=== PATIENT | female | born 1950 | race Caucasian/White ===

== ENCOUNTER → 2017-09-22 | Emergency (ER) | payer MEDICARE, MEDICAID ==
[~2017-09-22] MED LIST: Potassium Chloride 20 MEQ TAB ONE
[2017-09-22 10:55] LABS: Hemoglobin 12.5 g/dL (12.0-16.0); Mean Corpuscular HGB CONC 34.5 g/dL (32.0-36.0); Mean Corpuscular Hemoglobin 32.8 pg (27.0-31.0); Mean Corpuscular Volume 94.8 fl (81.0-99.0); RBC Distribution Width 11.8 % (11.5-14.5); Red Blood Cell (RBC) Count 3.82 mill/uL (4.20-5.40); White Blood Cell (WBC) Count 16.2 thou/uL (4.8-10.8)
[2017-09-22 11:05] LABS: ALT (SGPT) 136 U/L (8-55); AST (SGOT) 65 U/L (5-34); Albumin 3.1 g/dL (3.4-4.8); Alkaline Phosphatase 260 U/L (40-150); Anion Gap 15 mmol/L (10-20); BUN (Urea Nitrogen) 23 mg/dL (9.8-20.1); Bilirubin, Total 2.1 mg/dL (0.2-1.2); Calc. Creatinine Clearance 0 mL/min (70-130); Calcium 8.8 mg/dL (7.8-10.44); Carbon Dioxide 26 mmol/L (23-31); Chloride 88 mmol/L (98-107); Estimated GFR-MDRD 70; Globulin 3.2 g/dL (2.4-3.5); Glucose 136 mg/dL (80-115); Protein, Total 6.3 g/dL (6.0-8.3); Sodium 126 mmol/L (136-145)
[2017-09-22 11:18] LABS: Mean Platelet Volume 11.7 fL (7.4-10.4); Platelet Count 103 thou/uL (130-400)
[2017-09-22 11:19] LABS: Band 17 % (5-11); Eosinophils 3 % (0-10); Lymphocytes 5 % (21-51); MDiff Complete? YES; Monocytes 3 % (0-10); Neutrophil 72 % (42-75); PLT Morphology Comment Appears Decreased
[2017-09-22 11:22] LABS: Potassium 2.7 mmol/L (3.5-5.1)
--- NOTE | 2017-09-22 11:33 | CT ---
CT HEAD WITHOUT IV CONTRAST: Date: 09-22-17 History: Dizziness, altered mental status. Comparison: None available. FINDINGS: There are now density areas seen within the periventricular white matter, likely attributable to chr onic small vessel ischemic changes. There is no acute cortical infarction seen. There is no evidence of a hemorrhage, mass effect, or midline shift. The ventricular system is normal in size, shape, an d position. Visualized paranasal sinuses and mastoid air cells are clear. Calvarial structures are i ntact. IMPRESSION: 1. No acute intracranial abnormalities demonstrated. 2. Chronic small vessel ischemic changes. POS: [facility]
--- NOTE | 2017-09-22 11:34 | RAD ---
CHEST TWO VIEWS: Date: 09-22-17 Comparison: None. History: Dizziness, urinary tract infection. FINDINGS: There is no pneumothorax, pleural fluid, focal consolidation, or alveolar edema. Heart and mediastin al contours appear within normal limits. Osseous structures grossly unremarkable. IMPRESSION: No acute findings. POS: [facility]
[2017-09-22 16:36] LABS: Glucose, Urine (Dipstick) Negative (Negative); Leukocyte Negative (Negative); Nitrite Negative (Negative); Protein, Urine (Dipstick) Negative (Neg-Trace)
[2017-09-22 16:37] LABS: Amphetamine Not Detected (NotDetected); Bacteria/HPF Rare-Few HPF (None Seen); Barbiturates Screen Not Detected (NotDetected); Benzodiazepine Screen Not Detected (NotDetected); Bilirubin Negative (Negative); Blood, Urine Small (Negative); Clarity Clear (Clear); Cocaine Metabolite Screen Not Detected (NotDetected); Medtox Control Line Valid? VALID (VALID); Methadone Not Detected (NotDetected); Methamphetamine Not Detected (NotDetected); Opiate Screen Detected (NotDetected); Oxycodone Screen Not Detected (NotDetected); Phencyclidine (PCP) Not Detected (NotDetected); THC/Cannabinoid Screen Not Detected (NotDetected); Tricyclic Screen Not Detected (NotDetected)
== END ==
LOC: NAV ERS 09:49
DX: E87.1 Hypo-osmolality and hyponatremia (principal); E87.6 Hypokalemia; E86.9 Volume depletion, unspecified; T40.2X5A Adverse effect of other opioids, initial encounter; M19.90 Unspecified osteoarthritis, unspecified site; F32.9 Major depressive disorder, single episode, unspecified; Z87.891 Personal history of nicotine dependence; Z79.899 Other long term (current) drug therapy
CPT/HCPCS: 36416; 70450; 71020; 80053; 80306; 81003; 81015; 83605; 85025; 96360; 96361; 36415-59

== ENCOUNTER 2019-06-30 11:41 | Emergency (ER) | payer MEDICARE, OTHER ==
[2019-06-30 12:32] LABS: #Basophils 0.1 thou/uL (0.0-0.2); #Eosinphils 0.2 thou/uL (0.0-0.7); #Lymphocytes 2.3 thou/uL (1.20-3.40); #Monocytes 0.5 thou/uL (0.11-0.59); #Neutrophils 4.3 thou/uL (1.40-6.50); %Basophils 1.1 % (0.0-1.0); %Eosinophils 3.3 % (0.0-10.0); %Lymphocytes 30.8 % (21.0-51.0); %Monocytes 6.8 % (0.0-10.0); %Neutrophils 58.1 % (42.0-75.0); Hemoglobin 13.8 g/dL (12.0-16.0); Mean Corpuscular HGB CONC 33.4 g/dL (32.0-36.0); Mean Corpuscular Hemoglobin 30.9 pg (27.0-31.0); Mean Corpuscular Volume 92.6 fL (78.0-98.0); Mean Platelet Volume 8.5 fL (7.4-10.4); Platelet Count 200 thou/uL (130-400); Red Blood Cell (RBC) Count 4.46 mill/uL (4.20-5.40); White Blood Cell (WBC) Count 7.4 thou/uL (4.8-10.8)
[2019-06-30 12:47] LABS: ALT (SGPT) 46 U/L (8-55); AST (SGOT) 28 U/L (5-34); Albumin 4.6 g/dL (3.4-4.8); Alkaline Phosphatase 86 U/L (40-150); Anion Gap 15 mmol/L (10-20); BUN (Urea Nitrogen) 22 mg/dL (9.8-20.1); Bilirubin, Total 0.8 mg/dL (0.2-1.2); Calc. Creatinine Clearance 0 mL/min (70-130); Calcium 9.7 mg/dL (7.8-10.44); Carbon Dioxide 27 mmol/L (23-31); Chloride 101 mmol/L (98-107); Estimated GFR-MDRD 77; Globulin 2.9 g/dL (2.4-3.5); Glucose 103 mg/dL (80-115); Lipase 14 U/L (8-78); Protein, Total 7.5 g/dL (6.0-8.3); Sodium 139 mmol/L (136-145)
[2019-06-30 12:49] LABS: Bilirubin Negative (Negative); Blood, Urine Large (Negative); Clarity Clear (Clear); Glucose, Urine (Dipstick) Negative (Negative); Leukocyte Negative (Negative); Nitrite Negative (Negative); Protein, Urine (Dipstick) Negative (Neg-Trace); Urobilinogen 0.2 mg/dL (Less than 2)
[2019-06-30] MEDS ORDERED: Ondansetron ODT 4 MG TAB ONE (12:50)
[2019-06-30] MEDS ORDERED: hydrALAZINE 20 MG/ML VIAL ONE (13:02)
[2019-06-30] MEDS ORDERED: Morphine 4 MG/ML VIAL ONE ×2 (13:02→14:53)
[2019-06-30 13:07] LABS: Bacteria/HPF None Seen HPF (None Seen); RBC/HPF Greater than 50 HPF (0-3); Squamous Epithelial None Seen HPF (0-3); WBC/HPF None Seen HPF (0-3)
[2019-06-30] MEDS ORDERED: Ondansetron PF 4 MG/2 ML Vial ONE (13:42)
--- NOTE | 2019-06-30 13:52 | CT ---
CT Stone Protocol History: Abdominal pain. Comparison: None. Findings: Lung bases are clear. No pericardial effusion. Small fat-containing umbilical hernia. Prior cholecystectomy. [place] effect extrahepatic biliary system. Mild right hydroureteronephrosis to the level of the ureterovesicular junction due to a partially obs tructing 2 x 3 mm calculus. No other calculus within either renal collecting system nor ureter. The urinary bladder is without ca lculus. Mild diverticular disease sigmoid colon without active current inflammation. The appendix is visualiz ed and is normal. 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 Moderate degenerative changes o f both hips. Aortoiliac contour is nonaneurysmal. Impression: Partially obstructive right distal ureteral calculus at the ureterovesicular junction fredi suring 2 x 3 mm.
[2019-06-30] MEDS ORDERED: Ketorolac Tromethamine 30 MG/ML VIAL ONE (14:03)
[2019-06-30] MEDS ORDERED: Sodium Chloride 0.9% 1,000 ML ONE (14:03)
[2019-06-30] MEDS ORDERED: Promethazine HCl 25 MG/ML VIAL ONE (14:53)
[2019-06-30] MEDS ORDERED: Sodium Chloride 0.9% 500 ML ONE (14:53)
== END 2019-06-30 17:02 | disposition home or self-care (01) ==
LOC: NAV ERS 11:41
DX: N13.2 Hydronephrosis with renal and ureteral calculous obstruction (principal); M19.90 Unspecified osteoarthritis, unspecified site; F32.9 Major depressive disorder, single episode, unspecified; Z87.891 Personal history of nicotine dependence; Z79.891 Long term (current) use of opiate analgesic; Z79.899 Other long term (current) drug therapy
CPT/HCPCS: 36415; 74176; 80053; 81003; 81015; 83690; 85025; 96361; 96365; 96375; J0360; J1885; J2270; J2405; J2550; J7050; Q0162

== ENCOUNTER 2021-01-31 10:07 | Outpatient (CLI) | payer MEDICARE, MEDICAID | END 2021-01-31 10:08 | disposition home or self-care (01) | LOC: NAV RAD 10:07 | PROVIDERS: ATTEND Internal Medicine | DX: M70.52 Other bursitis of knee, left knee (principal); M17.0 Bilateral primary osteoarthritis of knee ==

== ENCOUNTER 2021-11-25 12:49 | Emergency (ER) | payer MEDICARE, MEDICAID, OTHER | END 2021-11-25 13:26 | disposition home or self-care (01) | LOC: NAV ERS 12:49 | DX: H11.32 Conjunctival hemorrhage, left eye (principal); M19.90 Unspecified osteoarthritis, unspecified site; Z87.891 Personal history of nicotine dependence; Z79.899 Other long term (current) drug therapy | CPT/HCPCS: 99282 ==

== ENCOUNTER 2021-11-30 19:18 | Emergency (ER) | payer MEDICARE, MEDICAID, OTHER ==
[2021-11-30] MEDS ORDERED: Lidocaine 1% (PF) 30 ML VIAL ONE (19:43)
[2021-11-30] MEDS ORDERED: Boostrix 0.5 ML (Tdap) VIAL ONE (20:01)
[2021-11-30] MEDS ORDERED: Amoxicillin/Potassium Clav 875 MG TAB ONE (20:03)
== END 2021-11-30 20:25 | disposition home or self-care (01) ==
LOC: NAV ERS 19:18
DX: S91.112A Laceration without foreign body of left great toe without damage to nail, initial encounter (principal); M19.90 Unspecified osteoarthritis, unspecified site; Z87.891 Personal history of nicotine dependence; Z79.899 Other long term (current) drug therapy
CPT/HCPCS: 12002; 90471; 90715; J2001

== ENCOUNTER 2023-10-26 12:22 | Emergency (ER) | payer OTHER, MEDICAID ==
[2023-10-26] MEDS ORDERED: Amoxicillin/Potassium Clav 875 MG TAB ONE (13:01)
== END 2023-10-26 13:05 | disposition home or self-care (01) ==
LOC: NAV ERS 12:22
DX: K04.7 Periapical abscess without sinus (principal); Z87.891 Personal history of nicotine dependence
CPT/HCPCS: 99282

== ENCOUNTER 2023-12-14 09:54 | Emergency (ER) | payer OTHER, MEDICAID ==
[2023-12-14] MEDS ORDERED: Bacitracin 1 PK ONE (10:31)
== END 2023-12-14 10:45 | disposition home or self-care (01) ==
LOC: NAV ERS 09:54
DX: T24.232A Burn of second degree of left lower leg, initial encounter (principal); T31.0 Burns involving less than 10% of body surface; X11.0XXA Contact with hot water in bath or tub, initial encounter
CPT/HCPCS: 16020; 99283

== ENCOUNTER 2024-02-07 16:24 | Emergency (ER) | payer OTHER, MEDICAID ==
[2024-02-07 17:04] LABS: #Basophils 0.1 thou/uL (0.0-0.2); #Eosinphils 0.3 thou/uL (0.0-0.7); #Monocytes 0.4 thou/uL (0.11-0.59); #Neutrophils 3.3 thou/uL (1.40-6.50); %Basophils 1.9 % (0.0-1.0); %Eosinophils 4.4 % (0.0-10.0); %Neutrophils 54.7 % (42.0-75.0); Hematocrit 42.4 % (36.0-47.0); Hemoglobin 14.2 g/dL (12.0-16.0); Mean Corpuscular HGB CONC 33.5 g/dL (32.0-36.0); Mean Corpuscular Hemoglobin 31.4 pg (27.0-31.0); Mean Corpuscular Volume 93.6 fl (78.0-98.0); Mean Platelet Volume 8.8 fL (7.4-10.4); Platelet Count 204 10x3/uL (130-400); RBC Distribution Width 11.6 % (11.5-14.5); Red Blood Cell (RBC) Count 4.53 mill/uL (4.20-5.40); White Blood Cell (WBC) Count 6.1 10x3/uL (4.8-10.8)
[2024-02-07 17:19] LABS: ALT (SGPT) 118 U/L (8-55); AST (SGOT) 88 U/L (5-34); Albumin 4.2 g/dL (3.4-4.8); Alkaline Phosphatase 125 U/L (40-110); Anion Gap 12 mmol/L (10-20); BUN (Urea Nitrogen) 6 mg/dL (9.8-20.1); Bilirubin, Total 0.7 mg/dL (0.2-1.2); Calc. Creatinine Clearance 0 mL/min (70-130); Calcium 8.9 mg/dL (7.8-10.44); Carbon Dioxide 25 mmol/L (23-31); Chloride 104 mmol/L (98-107); Estimated GFR 92; Globulin 2.9 g/dL (2.4-3.5); Glucose 85 mg/dL (83-110); Potassium 3.4 mmol/L (3.5-5.1); Protein, Total 7.1 g/dL (5.8-8.1); Sodium 138 mmol/L (136-145)
[2024-02-07 17:35] LABS: Bilirubin Negative (Negative); Blood, Urine Moderate (Negative); Clarity Clear (Clear); Glucose, Urine (Dipstick) Negative (Negative); Ketone, Urine Negative (Negative); Leukocyte Negative (Negative); Nitrite Negative (Negative); Protein, Urine (Dipstick) Negative (Neg-Trace); Urobilinogen 0.2 mg/dL (Less than 2); pH, Urine 6.5 (5.0-9.0)
[2024-02-07 17:45] LABS: CAUTI Indications for Culture Pelvic or flank pain; Squamous Epithelial 0-3 HPF (0-3); WBC/HPF None Seen HPF (0-3)
[2024-02-07 17:46] LABS: Urine Culture Reflex No No
[2024-02-07 17:51] LABS: Influenza A by NAA Not Detected (NotDetected); Influenza B by NAA Not Detected (NotDetected); SARS-CoV-2 NAA Rapid Test Not Detected (NotDetected)
== END 2024-02-07 19:28 | disposition home or self-care (01) ==
LOC: NAV ERS 16:24
DX: R53.1 Weakness (principal); I10 Essential (primary) hypertension; G62.9 Polyneuropathy, unspecified; Z87.891 Personal history of nicotine dependence; Z55.6 Problems related to health literacy; Z79.899 Other long term (current) drug therapy
CPT/HCPCS: 0240U; 71045; 71275; 80053; 81001; 85025; 85379; 93005

== ENCOUNTER 2024-09-14 09:26 | Emergency (ER) | payer OTHER ==
[~2024-09-14 09:26] MED LIST changes: +Iopamidol 370 76% 100 ML VIAL ONE; -Potassium Chloride 20 MEQ TAB ONE
[2024-09-14] MEDS ORDERED: Ondansetron PF 4 MG/2 ML Vial ONE (09:55)
[2024-09-14] MEDS ORDERED: Pantoprazole 40 MG VIAL ONE (09:55)
[2024-09-14 10:11] LABS: Hematocrit 46.4 % (36.0-47.0); Hemoglobin 15.6 g/dL (12.0-16.0); Mean Corpuscular HGB CONC 33.6 g/dL (32.0-36.0); Mean Corpuscular Hemoglobin 31.5 pg (27.0-31.0); Mean Corpuscular Volume 93.5 fl (78.0-98.0); Mean Platelet Volume 9.2 fL (7.4-10.4); Platelet Count 217 10x3/uL (130-400); RBC Distribution Width 11.6 % (11.5-14.5); Red Blood Cell (RBC) Count 4.96 mill/uL (4.20-5.40); White Blood Cell (WBC) Count 12.9 10x3/uL (4.8-10.8)
[2024-09-14 10:12] LABS: Band 4 % (5-11); Lymphocytes 3 % (21-51); MDiff Complete? YES; Monocytes 5 % (0-10); Neutrophil 88 % (42-75); Platelet Adequacy Comment Appears Adequate
[2024-09-14 10:13] LABS: ALT (SGPT) 29 U/L (8-55); AST (SGOT) 22 U/L (5-34); Albumin 3.9 g/dL (3.4-4.8); Alkaline Phosphatase 94 U/L (40-110); Anion Gap 15 mmol/L (10-20); BUN (Urea Nitrogen) 23 mg/dL (9.8-20.1); Bilirubin, Total 0.8 mg/dL (0.2-1.2); Calc. Creatinine Clearance 0 mL/min (70-130); Calcium 8.9 mg/dL (7.8-10.44); Carbon Dioxide 22 mmol/L (23-31); Chloride 103 mmol/L (98-107); Estimated GFR 86; Globulin 3.2 g/dL (2.4-3.5); Glucose 153 mg/dL (83-110); Lipase 32 U/L (8-78); Potassium 3.6 mmol/L (3.5-5.1); Protein, Total 7.1 g/dL (5.8-8.1); Sodium 136 mmol/L (136-145)
[2024-09-14 11:45] LABS: Bilirubin Negative (Negative); Blood, Urine Trace (Negative); Clarity Clear (Clear); Glucose, Urine (Dipstick) Negative (Negative); Ketone, Urine Negative (Negative); Leukocyte Negative (Negative); Nitrite Negative (Negative); Protein, Urine (Dipstick) Negative (Neg-Trace)
[2024-09-14 11:55] LABS: RBC/HPF 0-3 HPF (0-3)
[2024-09-14 11:56] LABS: Bacteria/HPF None Seen HPF (None Seen); CAUTI Indications for Culture Pelvic or flank pain; Squamous Epithelial None Seen HPF (0-3); Urine Culture Reflex No No; WBC/HPF 0-3 HPF (0-3)
[2024-09-14 12:10] LABS: Specific Gravity, Urine 1.035 (1.002-1.036)
[2024-09-16 03:01] LABS: Campy jejuni + coli by PCR Negative (Negative); STEC Shiga Toxin 1+2 Negative (Negative); Salmonella spp. by PCR Negative (Negative); Shigella spp + EIEC by PCR Negative (Negative)
== END 2024-09-14 11:51 | disposition home or self-care (01) ==
LOC: NAV ERS 09:26
DX: A09 Infectious gastroenteritis and colitis, unspecified (principal); I10 Essential (primary) hypertension; Z79.899 Other long term (current) drug therapy; Z87.891 Personal history of nicotine dependence
CPT/HCPCS: 74177; 80053; 81001; 83690; 85025; 87505; J2405; J2470; Q9967; 96374; 96375

== ENCOUNTER 2024-12-15 10:55 | Emergency (ER) | payer OTHER ==
[2024-12-15] MEDS ORDERED: Ketorolac Tromethamine 30 MG (1 mL) VIAL ONE (11:10)
== END 2024-12-15 12:22 | disposition home or self-care (01) ==
LOC: NAV ERS 10:55
DX: S22.42XA Multiple fractures of ribs, left side, initial encounter for closed fracture (principal); I10 Essential (primary) hypertension; Z87.891 Personal history of nicotine dependence; Z79.899 Other long term (current) drug therapy; W01.0XXA Fall on same level from slipping, tripping and stumbling without subsequent striking against object, initial encounter; Y92.000 Kitchen of unspecified non-institutional (private) residence as the place of occurrence of the external cause
CPT/HCPCS: 71250; 93005; 96372; J1885

== ENCOUNTER 2025-08-30 14:29 | Inpatient (IN) | payer OTHER, MEDICAID ==
[2025-08-30] MEDS ORDERED: Senokot S 8.6-50 MG TAB PO PRN (15:24)
[2025-08-31] MEDS: Acetaminophen 325 MG TAB PO PRN (00:23)
[2025-08-31] MEDS: Famotidine 20 MG TAB PO SCH ×2 (02:12→08:20)
[2025-08-31] MEDS: Methocarbamol 500 MG TAB PO PRN (02:17)
[2025-08-31] MEDS: Gabapentin 300 MG CAP PO SCH ×2 (02:29→08:19)
[2025-08-31 05:50] LABS: #Basophils 0.1 thou/uL (0.0-0.2); #Eosinophils 0.1 thou/uL (0.0-0.7); #Lymphocytes 2.8 thou/uL (1.20-3.40); #Monocytes 0.3 thou/uL (0.11-0.59); #Neutrophils 2.7 thou/uL (1.40-6.50); %Basophils 1.2 % (0.0-1.0); %Eosinophils 0.8 % (0.0-10.0); %Lymphocytes 47.5 % (21.0-51.0); %Monocytes 5.4 % (0.0-10.0); %Neutrophils 45.2 % (42.0-75.0); Hematocrit 30.4 % (36.0-47.0); Hemoglobin 11.0 g/dL (12.0-16.0); Mean Corpuscular Hemoglobin 31.4 pg (27.0-31.0); Mean Corpuscular Volume 87.2 fl (78.0-98.0); Platelet Count 231 10x3/uL (130-400); Red Blood Cell (RBC) Count 3.49 mill/uL (4.20-5.40); White Blood Cell (WBC) Count 5.9 10x3/uL (4.8-10.8)
[2025-08-31] MEDS: HYDROcodone/Acetaminophen 10/325 mg Tablet PO PRN (07:18)
[2025-08-31] MEDS: HYDROcodone/Acetaminophen 10/325 mg Tablet PO SCH (08:20)
[2025-08-31 08:57] LABS: ALT (SGPT) 86 U/L (Less than 34); AST (SGOT) 127 U/L (11-34); Albumin 2.7 g/dL (3.1-4.5); Alkaline Phosphatase 273 U/L (40-110); Anion Gap 10 mmol/L (10-20); BUN (Urea Nitrogen) 6 mg/dL (9.8-20.1); Bilirubin, Total 0.5 mg/dL (0.3-1.2); Calc. Creatinine Clearance 132 mL/min (70-130); Calcium 8.1 mg/dL (7.8-10.44); Carbon Dioxide 26 mmol/L (23-31); Chloride 104 mmol/L (98-107); Globulin 3.3 g/dL (2.4-3.5); Glucose 97 mg/dL (83-110); Potassium 4.2 mmol/L (3.5-5.1); Sodium 136 mmol/L (136-145)
[2025-08-31] MEDS: Calcium Carbonate 500 MG ChewTAB PO PRN (13:56)
[2025-08-31] MEDS: Transdermal Patch Removal TOP SCH (20:51)
[2025-09-01] MEDS: Artificial Tear Ophth Sol 15 ML BOT EA EYE PRN (20:45)
[2025-09-02 05:47] LABS: ALT (SGPT) 60 U/L (Less than 34); AST (SGOT) 55 U/L (11-34); Albumin 3.1 g/dL (3.1-4.5); Alkaline Phosphatase 240 U/L (40-110); Anion Gap 13 mmol/L (10-20); BUN (Urea Nitrogen) 8 mg/dL (9.8-20.1); Bilirubin, Total 0.6 mg/dL (0.3-1.2); Calc. Creatinine Clearance 112 mL/min (70-130); Calcium 8.5 mg/dL (7.8-10.44); Carbon Dioxide 27 mmol/L (23-31); Chloride 102 mmol/L (98-107); Globulin 3.3 g/dL (2.4-3.5); Glucose 100 mg/dL (83-110); Potassium 4.3 mmol/L (3.5-5.1); Sodium 138 mmol/L (136-145)
[2025-09-04] MEDS: Acetaminophen 325 MG TAB PO PRN (10:51)
[2025-09-09 05:05] LABS: #Basophils 0.1 thou/uL (0.0-0.2); #Eosinophils 0.1 thou/uL (0.0-0.7); #Lymphocytes 2.1 thou/uL (1.20-3.40); #Monocytes 0.4 thou/uL (0.11-0.59); #Neutrophils 2.0 thou/uL (1.40-6.50); %Basophils 1.8 % (0.0-1.0); %Eosinophils 2.6 % (0.0-10.0); %Lymphocytes 44.8 % (21.0-51.0); %Monocytes 9.3 % (0.0-10.0); %Neutrophils 41.4 % (42.0-75.0); Hematocrit 34.5 % (36.0-47.0); Hemoglobin 12.4 g/dL (12.0-16.0); Mean Corpuscular Hemoglobin 32.0 pg (27.0-31.0); Mean Corpuscular Volume 89.1 fl (78.0-98.0); Platelet Count 173 10x3/uL (130-400); Red Blood Cell (RBC) Count 3.87 mill/uL (4.20-5.40); White Blood Cell (WBC) Count 4.8 10x3/uL (4.8-10.8)
[2025-09-09 05:23] LABS: ALT (SGPT) 34 U/L (Less than 34); AST (SGOT) 33 U/L (11-34); Albumin 3.5 g/dL (3.1-4.5); Alkaline Phosphatase 130 U/L (40-110); Anion Gap 13 mmol/L (10-20); BUN (Urea Nitrogen) 11 mg/dL (9.8-20.1); Bilirubin, Total 0.7 mg/dL (0.3-1.2); Calc. Creatinine Clearance 122 mL/min (70-130); Calcium 8.7 mg/dL (7.8-10.44); Carbon Dioxide 26 mmol/L (23-31); Chloride 102 mmol/L (98-107); Globulin 3.2 g/dL (2.4-3.5); Glucose 91 mg/dL (83-110); Potassium 4.2 mmol/L (3.5-5.1); Sodium 137 mmol/L (136-145)
[2025-09-10 05:52] VITALS: BMI 29.0
[2025-09-11] MEDS ORDERED: ALENDRONATE SODIUM 10 MG PO SCH (06:00)
[2025-09-15 13:18] VITALS: BMI 29.0
[2025-09-16 07:54] VITALS: BP 131/68; TEMP 97.9
== END 2025-09-16 11:30 | disposition home or self-care (01) | DRG 945 ==
LOC: NAV ACUTE 22:39
PROVIDERS: ADMIT Student in an Organized Health Care Education/Training Program; ATTEND Student in an Organized Health Care Education/Training Program
PROC: F07Z9ZZ Gait Training/Functional Ambulation Treatment (ICD-10-PCS; principal; 2025-08-30)
DX: R53.1 Weakness (principal); J18.9 Pneumonia, unspecified organism; S06.6XAA Traumatic subarachnoid hemorrhage with loss of consciousness status unknown, initial encounter; S06.5XAA Traumatic subdural hemorrhage with loss of consciousness status unknown, initial encounter; S12.001A Unspecified nondisplaced fracture of first cervical vertebra, initial encounter for closed fracture; E78.5 Hyperlipidemia, unspecified; I10 Essential (primary) hypertension; G25.81 Restless legs syndrome; M79.7 Fibromyalgia; Z90.49 Acquired absence of other specified parts of digestive tract; Z98.890 Other specified postprocedural states; G62.9 Polyneuropathy, unspecified; Z87.891 Personal history of nicotine dependence; Z98.49 Cataract extraction status, unspecified eye; S02.2XXA Fracture of nasal bones, initial encounter for closed fracture; R74.01 Elevation of levels of liver transaminase levels; M16.12 Unilateral primary osteoarthritis, left hip; W19.XXXA Unspecified fall, initial encounter; F32.9 Major depressive disorder, single episode, unspecified; H43.399 Other vitreous opacities, unspecified eye; M81.0 Age-related osteoporosis without current pathological fracture; D64.9 Anemia, unspecified; G93.32 Myalgic encephalomyelitis/chronic fatigue syndrome; Z79.899 Other long term (current) drug therapy
CPT/HCPCS: 36415; 70450; 80053; 85025

== ENCOUNTER 2025-09-28 10:31 | Emergency (ER) | payer OTHER, MEDICAID ==
[2025-09-28 11:25] LABS: #Basophils 0.0 thou/uL (0.0-0.2); #Eosinophils 0.2 thou/uL (0.0-0.7); #Lymphocytes 2.3 thou/uL (1.20-3.40); #Monocytes 0.3 thou/uL (0.11-0.59); #Neutrophils 3.1 thou/uL (1.40-6.50); %Basophils 0.5 % (0.0-1.0); %Eosinophils 2.9 % (0.0-10.0); %Lymphocytes 39.2 % (21.0-51.0); %Monocytes 4.9 % (0.0-10.0); %Neutrophils 52.6 % (42.0-75.0); Hematocrit 40.6 % (36.0-47.0); Hemoglobin 13.8 g/dL (12.0-16.0); Manual Diff?? NO; Mean Corpuscular Hemoglobin 32.6 pg (27.0-31.0); Mean Corpuscular Volume 96.1 fl (78.0-98.0); Platelet Count 182 10x3/uL (130-400); Red Blood Cell (RBC) Count 4.23 mill/uL (4.20-5.40); White Blood Cell (WBC) Count 5.8 10x3/uL (4.8-10.8)
[2025-09-28 11:42] LABS: ALT (SGPT) 33 U/L (Less than 34); AST (SGOT) 32 U/L (11-34); Albumin 4.2 g/dL (3.1-4.5); Alkaline Phosphatase 97 U/L (40-110); Anion Gap 14 mmol/L (10-20); BUN (Urea Nitrogen) 5 mg/dL (9.8-20.1); Calc. Creatinine Clearance 0 mL/min (70-130); Calcium 9.0 mg/dL (7.8-10.44); Carbon Dioxide 24 mmol/L (23-31); Chloride 103 mmol/L (98-107); Globulin 3.2 g/dL (2.4-3.5); Glucose 100 mg/dL (83-110); Potassium 3.8 mmol/L (3.5-5.1); Sodium 137 mmol/L (136-145)
[2025-09-28 12:10] LABS: Bilirubin, Total 0.6 mg/dL (0.3-1.2)
[2025-09-28] MEDS ORDERED: Cefepime 2 GM VIAL ONE (12:30)
== END 2025-09-28 14:15 | disposition short-term general hospital (02) ==
LOC: NAV ERS 10:31
DX: M79.661 Pain in right lower leg (principal); R79.89 Other specified abnormal findings of blood chemistry; R20.2 Paresthesia of skin; I10 Essential (primary) hypertension; Z87.891 Personal history of nicotine dependence; Z79.899 Other long term (current) drug therapy
CPT/HCPCS: 80053; 85025; 85379; 99284; J0692; J2550

== ENCOUNTER 2025-10-02 11:11 | Outpatient (CLI) | payer OTHER, MEDICAID | END 2025-10-02 11:12 | disposition home or self-care (01) | LOC: NAV CT 11:11 | PROVIDERS: ATTEND Neurological Surgery | DX: S06.5X0A Traumatic subdural hemorrhage without loss of consciousness, initial encounter (principal); R90.82 White matter disease, unspecified | CPT/HCPCS: 70450 ==